=== PATIENT | male | born 1945 | race African-American/Black ===

== ENCOUNTER 2017-11-19 09:16 | Outpatient (CLI) | payer MEDICARE ==
[2017-11-19] MEDS ORDERED: Iopamidol 370 76% 100 ML VIAL ONE (16:04)
== END 2017-11-19 09:17 | disposition home or self-care (01) ==
LOC: BICCT 09:16
PROVIDERS: ATTEND Urology
DX: C64.2 Malignant neoplasm of left kidney, except renal pelvis (principal); K86.2 Cyst of pancreas; N28.1 Cyst of kidney, acquired
CPT/HCPCS: 71046; 74170

== ENCOUNTER 2018-10-24 04:33 | Outpatient (CLI) | payer MEDICARE ==
[2018-10-24 09:58] LABS: #Eosinphils 0.3 thou/uL (0.0-0.7); #Lymphocytes 1.4 thou/uL (1.20-3.40); #Monocytes 0.6 thou/uL (0.11-0.59); #Neutrophils 5.4 thou/uL (1.40-6.50); %Basophils 0.6 % (0.0-1.0); %Lymphocytes 18.6 % (21.0-51.0); %Monocytes 7.1 % (0.0-10.0); %Neutrophils 69.8 % (42.0-75.0); Hemoglobin 13.9 g/dL (14.0-18.0); Mean Corpuscular HGB CONC 31.8 g/dL (32.0-36.0); Mean Corpuscular Hemoglobin 31.9 pg (27.0-31.0); Mean Platelet Volume 6.6 fL (7.4-10.4); Platelet Count 327 thou/uL (130-400); RBC Distribution Width 11.6 % (11.5-14.5); Red Blood Cell (RBC) Count 4.36 mill/uL (4.70-6.10); White Blood Cell (WBC) Count 7.7 thou/uL (4.8-10.8)
[2018-10-24 10:05] LABS: PTT 27.3 SEC (22.9-36.1); Prothrombin Time 13.2 SEC (12.0-14.7)
[2018-10-24 10:20] LABS: Anion Gap 10 mmol/L (10-20); BUN (Urea Nitrogen) 14 mg/dL (8.4-25.7); Calc. Creatinine Clearance 0 mL/min (70-130); Calcium 9.3 mg/dL (7.8-10.44); Carbon Dioxide 25 mmol/L (23-31); Chloride 110 mmol/L (98-107); Estimated GFR-MDRD Greater than 90; Glucose 92 mg/dL (83-110); Potassium 3.4 mmol/L (3.5-5.1); Sodium 142 mmol/L (136-145)
[2018-10-24 10:26] LABS: Bilirubin Small (Negative); Blood, Urine Negative (Negative); Clarity CLEAR (Clear); Glucose, Urine (Dipstick) Negative (Negative); Leukocyte Small (Negative); Nitrite Negative (Negative); Protein, Urine (Dipstick) Negative (Neg-Trace); Specific Gravity, Urine 1.028 (1.002-1.036)
[2018-10-24 10:29] LABS: Bacteria/HPF None Seen HPF (None Seen); Hyaline Casts/LPF 0-3 HYALINE CAST LPF (0-3 Hyaline); Pathc Cast-AUWi Flag 0.14 (0-2.49); RBC/HPF 0-3 HPF (0-3); Squamous Epithelial 0-3 HPF (0-3)
--- NOTE | 2018-10-24 10:49 | RAD ---
CHEST 2 VIEWS: HISTORY: Preop. COMPARISON: Radiograph 01/20/2017. FINDINGS: Lungs are clear. No pneumothorax or effusion. Heart size is mildly enlarged. No acute osseous abno rmality. IMPRESSION: Mild cardiomegaly. No acute intrathoracic abnormality. POS: [facility]
--- NOTE | 2018-10-25 09:00 | EKG ---
Test Reason : Blood Pressure : / mmHG Vent. Rate : 074 BPM Atrial Rate : 074 BPM P-R Int : 156 ms QRS Dur : 078 ms QT Int : 366 ms P-R-T Axes : 057 051 000 degrees QTc Int : 406 ms Normal sinus rhythm Nonspecific T wave abnormality Abnormal ECG When compared with ECG of 15-FEB-2017 15:37, No significant change was found Confirmed by DR. Emmanuel ABDI ([id number]) on 10/25/2018 9:00:01 AM Referred By: ADAM Confirmed By:DR. Emmanuel ABDI
== END 2018-10-24 04:34 | disposition home or self-care (01) ==
LOC: LABBT 04:33
PROVIDERS: ATTEND Orthopaedic Surgery
DX: Z01.818 Encounter for other preprocedural examination (principal); M16.12 Unilateral primary osteoarthritis, left hip; I51.7 Cardiomegaly
CPT/HCPCS: 71046; 85730; 87081; 93005; 93010

== ENCOUNTER 2018-10-24 08:45 | Inpatient (IN) | payer MEDICARE ==
[2018-10-24 08:25] VITALS: BMI 30.7
[2018-11-05] MEDS ORDERED: Vancomycin HCl 1.5 GM in Sodium Chloride 0.9% 250 ML 300 ML IVPB SCH (06:00)
[2018-11-05] MEDS ORDERED: Fentanyl 100 MCG/2 ML VIAL ONE ×2 (06:22→07:06)
[2018-11-05] MEDS ORDERED: Midazolam HCl 2 mg/2 ml Vial ONE (06:22)
[2018-11-05] MEDS ORDERED: Sodium Chloride 0.9% 100 ML ONE (06:23)
[2018-11-05] MEDS ORDERED: Tranexamic Acid 1,000 MG/10 ML VIAL ONE (06:23)
[2018-11-05] MEDS ORDERED: Lidocaine 1.5% w/Epi 1:200K 30 ML VIAL (Epid Use) ONE (06:34)
[2018-11-05] MEDS ORDERED: Ondansetron PF 4 MG/2 ML Vial IVP PRN ×2 (07:15→08:52)
[2018-11-05] MEDS ORDERED: Naloxone HCl 0.4 mg/ml Vial IVP PRN (07:15)
[2018-11-05] MEDS ORDERED: Promethazine HCl 25 MG/ML VIAL IM PRN ×3 (07:15→08:52)
[2018-11-05] MEDS ORDERED: Naloxone HCl 0.4 mg/ml Vial IV PRN (07:15)
[2018-11-05] MEDS ORDERED: diphenhydrAMINE 50 MG/ML VIAL IM PRN (07:15)
[2018-11-05] MEDS ORDERED: traMADol HCl 50 MG TAB PO PRN ×2 (07:15)
[2018-11-05] MEDS ORDERED: HYDROcodone/Acetaminophen 5/325 mg Tablet PO PRN ×2 (07:15)
[2018-11-05] MEDS ORDERED: diphenhydrAMINE 25 MG CAP PO PRN ×2 (07:15→08:52)
[2018-11-05] MEDS ORDERED: diphenhydrAMINE 50 MG/ML VIAL IVP PRN (07:15)
[2018-11-05] MEDS ORDERED: Zolpidem Tartrate 5 MG TAB PO PRN ×2 (07:15→08:52)
[2018-11-05] MEDS ORDERED: Promethazine HCl 25 MG SUPP PR PRN (07:15)
[2018-11-05] MEDS ORDERED: Hydrocerin (Eucerin) Cream 120 gm Jar TOP PRN (07:15)
[2018-11-05] MEDS ORDERED: Promethazine HCl 25 MG/ML VIAL SLOW IVP PRN (08:40)
[2018-11-05] MEDS ORDERED: Ondansetron HCl/PF 4 MG/2 ML Vial IVP PRN (08:40)
[2018-11-05] MEDS ORDERED: Acetaminophen 325 MG TAB PO PRN (08:52)
[2018-11-05] MEDS ORDERED: Fentanyl 100 MCG/2 ML VIAL SLOW IVP PRN ×2 (08:52)
[2018-11-05] MEDS ORDERED: HYDROcodone/Acetaminophen 10/325 mg Tablet PO PRN ×2 (08:52)
[2018-11-05] MEDS ORDERED: Fentanyl 5 mcg/Bup 0.075% Cadd 100 ML EPIDURAL ONE (09:05)
--- NOTE | 2018-11-05 09:56 | RAD ---
LEFT HIP TWO VIEWS: HISTORY: Postoperative exam. FINDINGS: Left hip arthroplasty has near anatomic alignment. Expected postoperative changes in the soft tissue s. IMPRESSION: Findings compatible with left hip arthroplasty. POS: [facility]
[2018-11-05] MEDS: Allopurinol 300 MG TAB PO SCH (11:21)
[2018-11-05] MEDS: DorzolamidE/Timolol 2%/0.5% Ophth Soln 10 ml Bottle EA EYE SCH ×2 (11:22→20:15)
[2018-11-05] MEDS: Doxazosin Mesylate 4 MG TAB PO SCH (11:22)
[2018-11-05] MEDS: Multivitamin W/ Minerals 1 TAB PO SCH (11:22)
[2018-11-05] MEDS: Senokot S 8.6-50 MG TAB PO SCH ×2 (11:22→20:16)
[2018-11-05] MEDS: Aspirin 81 mg Enteric Coated Tablet PO SCH ×2 (11:22→20:16)
[2018-11-05] MEDS: Lisinopril/Hydrochlorothiazide 20 mg/12.5 mg Tablet PO SCH (11:22)
[2018-11-05] MEDS: Ferrous Gluconate 324 MG TAB PO SCH ×2 (11:22→20:16)
[2018-11-05] MEDS: Clindamycin/D5W 900 MG in Premix Bag 1 BAG IVPB SCH ×2 (11:59→17:21)
--- NOTE | 2018-11-05 12:37 | OP ---
DATE OF PROCEDURE: 11/05/2018 PREOPERATIVE DIAGNOSIS: Degenerative joint disease, left hip. POSTOPERATIVE DIAGNOSIS: Degenerative joint disease, left hip. UNDERGROUND DISTRIBUTION ENGINEER: Gold Conrad PA-C BLOOD LOSS: 300. SPECIMEN: None. DRAINS: None. COMPLICATION: None. IMPLANTS USED: Johnnie Accolate #5 stem, 58 mm cup, 36 mm X3 liner, and a standard 36 mm head. PROCEDURE IN DETAIL: After informed consent was obtained in the preoperative holding area, the patient was taken to the operative suite where general anesthesia was induced. The patient was then positioned in the lateral decubitus position. The hip was then prepped and draped in usual sterile fashion. The patient received preoperative antibiotics. Prior to incision, time-out was called and all members of the surgical team agreed upon site, surgeon, and patient. After this, a longitudinal incision was made directly over the trochanter, noted by palpation extending 2 fingerbreadths above and below the trochanter. The deeper subcutaneous layer was undermined with Bovie electrocautery. The iliotibial band was encountered and incised sharply and the plane below this was developed bluntly. A Charnley retractor was placed to hold this opened. The lateral aspect of the trochanter and the abductor muscles were encountered and then reflected anteriorly off the trochanter using Bovie electrocautery. Once this was completed, the anterior capsule was then encountered and identified and copious capsulotomy was carried out, exposing the femoral neck and head. Dislocation maneuver was then performed and an in situ provisional neck cut was then made using the oscillating saw. Attention was then turned to acetabular preparation and sequential reaming was carried out up to the appropriate diameter. A trial was then malleted into place with good firm resistance and no pullout. The permanent acetabular shell was then malleted squarely into place, as was the appropriate liner. Once completed, the wound was copiously irrigated and attention was then turned to femoral preparation. Flexion and external rotation were performed of the exposed thigh and femoral elevators were then placed at the proximal aspect of the wound. Canal finder was used to establish the length of the canal and sequential reaming was carried out, followed by broaching. Once the appropriate stability was established with the trial broaches with flexion, extension and rotational stability, we did trial with neutral and 2 mm offset incremental necks. Once the appropriate size was decided upon, with good stability noted with flexion, extension, internal and external rotation and shuck being negative, we removed the femoral trial broach and malletted into place the permanent prosthesis with good firm fit, which was also stable to rotation. Again, the hip felt very stable to flexion, extension, internal and external rotation. Leg lengths appeared near anatomic clinically and we were quite happy with prosthesis placement. Copious irrigation was then carried out through the entirety of the wound. Primary closure of the abductors was accomplished with interrupted #2 Vicryl [id number] stitches and the IT band was then closed with interrupted #2 Vicryl, oversewn with a #2 running barbed Quill stitch. Subcutaneous fascia was closed with running barbed Quill stitch and a subcuticular Monocryl barbed Quill stitch was used for skin closure and augmented with skin cement. A sterile dressing was applied. The procedure was terminated without any complication. All counts were correct. The patient was awakened in the operative suite and taken to the recovery room in stable condition. Job ID: [id number]
[2018-11-05] MEDS ORDERED: Rocuronium Bromide 10 MG/ML (10ML VIAL) ONE (15:04)
[2018-11-05] MEDS ORDERED: Glycopyrrolate 0.2 MG/ML 5 ML SYRINGE ONE (15:04)
[2018-11-05] MEDS ORDERED: Ondansetron PF 4 MG/2 ML Vial ONE (15:04)
[2018-11-05] MEDS ORDERED: ePHEDrine 50 MG/ML VIAL ONE (15:04)
[2018-11-05] MEDS ORDERED: PROPOFOL 200 MG/20 ML VIAL ONE (15:04)
[2018-11-05] MEDS ORDERED: Lidocaine 1% PF 5 ML VIAL ONE (15:04)
--- NOTE | 2018-11-05 16:55 | PDOC.EVN ---
Addendum - Attending - Attending Attestation Date/Time: 11/05/18 1214 I personally evaluated the patient and discussed the management with Dr. Laurent Matias. I agree with the History, Examination, Assessment and Plan documented in her consult note with any addition or exceptions noted below. Patient here for L THR that was performed today and we are consulted for medical mgmt. Will resume home meds and make adjustments as needed. Dispo per primary team.
[2018-11-05] MEDS ORDERED: Potassium Chloride 8 MEQ TAB PO SCH (17:00)
[2018-11-05] MEDS: Potassium Chloride 20 MEQ TAB PO SCH (17:20)
--- NOTE | 2018-11-05 17:49 | CON ---
DATE OF CONSULTATION: 11/05/2018 REASON FOR CONSULTATION: Medical management. HISTORY OF PRESENT ILLNESS: This is a pleasant 73-year-old gentleman with a past medical history of hypertension and hyperlipidemia, who presented this morning for left total hip replacement and when I saw him this afternoon, he was working with physical therapy. Denied severe pain. He had tolerated his lunch fine without nausea and vomiting. He denied any symptoms. He had a Bernard in place with urine output. [facility] consulted for medical management. PAST MEDICAL HISTORY: 1. Hypertension. 2. Hyperlipidemia. 3. Degenerative joint disease of left hip. 4. History of gout. 5. Benign prostatic hypertrophy. PAST SURGICAL HISTORY: 1. Hernia repair 20 years ago. 2. Right ankle fracture, status post repair. 3. Back surgery [place] [address] Sanchez. 4. Left kidney mass/removal. 5. Left total hip repaired today. FAMILY HISTORY: Mother and father are . Denies other family history. SOCIAL HISTORY: Denies smoking, alcohol, or drug use. ALLERGIES: NO KNOWN DRUG ALLERGIES. PHYSICAL EXAMINATION: VITAL SIGNS: Blood pressure 152/80, temperature 97.4, heart rate 80, respiratory rate 18, saturating 96% on room air. GENERAL: In no apparent distress. HEENT: Normocephalic, atraumatic. Pupils are equal, round, and reactive to light and accommodation. CARDIOVASCULAR: Regular rate and rhythm. No murmurs, rubs, or gallops. RESPIRATORY: Clear to auscultation bilaterally. No wheezing, rhonchi, or rales. ABDOMEN: Obese, but soft. Nontender to palpation, nondistended. Hypoactive bowel sounds. EXTREMITIES: No edema bilaterally. 1+ pulses in bilateral lower extremities. NEUROLOGIC: Alert and oriented x3. DIAGNOSTIC DATA: Hip x-ray on 11/05/2018 at 08:54, left hip arthroplasty with near anatomic alignment, expected postop changes in the soft tissues, findings compatible with left hip arthroplasty. LABORATORY DATA: On 10/24/2018, white blood cell count 10.7, hemoglobin 13.9, hematocrit 42.9, platelets 327, MCV 101. Coag panel; PT 13.2, INR 1, and PTT 27.3. BMP; sodium 142, potassium 3.4, chloride 110, bicarb 25, BUN 14, creatinine 0.88 , glucose 92. Urine, small leukocyte esterase, 7 to 10 white blood cells, 0 to 3 squamous cells, negative nitrites, negative bacteria. ASSESSMENT AND PLAN: This is a 73-year-old gentleman with past medical history of hypertension and hyperlipidemia, now status post left total hip arthroplasty. Family Medicine Service was consulted for medical management. 1. Left hip arthroplasty, postoperative day 0. We will defer to primary team for postoperative management. 2. Hypertension. Blood pressure mildly hypertensive 153 systolic. The patient restarted on home medication. Amlodipine 2.5 mg p.o. daily and lisinopril 20 and hydrochlorothiazide 12.5. We will continue the lisinopril 20 and hydrochlorothiazide 12.5 daily and hold the benazepril currently as this was also restarted. At this time, we will watch blood pressures overnight and adjust accordingly. Hydralazine prn provided as pt was given home meds this am. 3. Hyperlipidemia. He is currently on atorvastatin 10 mg p.o. at night. Ordered FLP to assess ascvd risk. Will consider increasing if necessary. 4. History of gout. The patient was continued on his home medication of allopurinol 300 mg p.o. daily. 5. Benign prostatic hypertrophy. The patient was continued on doxazosin 4 mg p.o. daily. 6. Deep venous thrombosis prophylaxis with SCDs. 7. Diet, heart healthy. 8. Activity, as tolerated with physical therapy. 9. Code status, full code. This pt was seen by Dr. Giacomo Peterson, my attending, who agrees with the above assessment and plan. Jonathan Matias MD, PGY-2 Job ID: [id number] [facility]
[2018-11-05] MEDS ORDERED: hydrALAZINE 20 MG/ML VIAL SLOW IVP PRN (17:54)
[2018-11-05] MEDS: Latanoprost 0.005% Ophth Soln 2.5 ml Bottle EA EYE SCH (20:15)
[2018-11-05] MEDS: Atorvastatin Calcium 10 MG TAB PO SCH (20:16)
[2018-11-06] MEDS: Fentanyl 5 mcg/Bup 0.075% Cadd 100 ML EPIDURAL SCH ×2 (01:58→17:18)
[2018-11-06 04:34] LABS: Hemoglobin 12.3 g/dL (14.0-18.0); Mean Corpuscular HGB CONC 31.6 g/dL (32.0-36.0); Mean Platelet Volume 6.8 fL (7.4-10.4); Platelet Count 276 thou/uL (130-400); RBC Distribution Width 11.5 % (11.5-14.5); Red Blood Cell (RBC) Count 3.83 mill/uL (4.70-6.10); White Blood Cell (WBC) Count 10.6 thou/uL (4.8-10.8)
[2018-11-06 04:58] LABS: ALT (SGPT) 14 U/L (8-55); AST (SGOT) 29 U/L (5-34); Albumin 3.2 g/dL (3.4-4.8); Alkaline Phosphatase 74 U/L (40-150); Anion Gap 10 mmol/L (10-20); BUN (Urea Nitrogen) 11 mg/dL (8.4-25.7); Bilirubin, Total 0.9 mg/dL (0.2-1.2); Calc. Creatinine Clearance 101 mL/min (70-130); Calcium 8.5 mg/dL (7.8-10.44); Carbon Dioxide 25 mmol/L (23-31); Cardiac Risk 2.5 (Less than 4.5); Chloride 107 mmol/L (98-107); Cholesterol 80 mg/dl (< 200 Desired); Estimated GFR-MDRD Greater than 90; Globulin 2.2 g/dL (2.4-3.5); Glucose 112 mg/dL (83-110); HDL Cholesterol 32 mg/dL (>60 Neg Risk); LDL Cholesterol, Calculated 39 mg/dL; Potassium 3.4 mmol/L (3.5-5.1); Protein, Total 5.4 g/dL (5.8-8.1); Sodium 139 mmol/L (136-145); Triglycerides 47 mg/dL (Less than 150)
[2018-11-06] MEDS ORDERED: Potassium Chloride 20 MEQ TAB PO SCH (06:45)
[2018-11-06] MEDS ORDERED: Lactated Ringer's 500 ML IV SCH (07:00)
[2018-11-06] MEDS: Doxazosin Mesylate 4 MG TAB PO SCH (08:47)
[2018-11-06] MEDS: Potassium Chloride 20 MEQ TAB PO SCH ×2 (08:49→17:18)
[2018-11-06] MEDS: Multivitamin W/ Minerals 1 TAB PO SCH (08:51)
[2018-11-06] MEDS: Lisinopril/Hydrochlorothiazide 20 mg/12.5 mg Tablet PO SCH (08:52)
[2018-11-06] MEDS: Senokot S 8.6-50 MG TAB PO SCH ×2 (08:52→22:42)
[2018-11-06] MEDS: Ferrous Gluconate 324 MG TAB PO SCH ×2 (08:54→20:48)
[2018-11-06] MEDS: Allopurinol 300 MG TAB PO SCH (08:55)
[2018-11-06] MEDS: DorzolamidE/Timolol 2%/0.5% Ophth Soln 10 ml Bottle EA EYE SCH ×2 (08:57→20:47)
[2018-11-06] MEDS ORDERED: Amlodipine 5 MG TAB PO SCH (09:00)
--- NOTE | 2018-11-06 09:06 | PDOC.FM ---
- Subjective Subjective: Doing well. Although, tachycardic overnight. One episode of hypoxia overnight. Resting in chair without oxygen on. - Objective MAR Reviewed: Yes Vital Signs & Weight: Vital Signs (12 hours) Temp Pulse Resp BP BP Pulse Ox 11/06/18 08:55 142/78 H 11/06/18 08:53 142/78 H 11/06/18 08:52 142/78 H 11/06/18 07:57 98.4 F 117 H 20 142/78 H 92 L 11/06/18 04:14 98.5 F 101 H 20 133/75 96 11/06/18 00:31 99.0 F 107 H 20 142/79 H 93 L 11/05/18 21:56 98.9 F 112 H 22 H 137/81 94 L Weight Weight 97.069 kg I&O: 11/05/18 11/06/18 11/07/18 06:59 06:59 06:59 Intake Total 1750 Output Total 1425 Balance 325 Result Diagrams: 11/06/18 04:15 11/06/18 04:15 Phys Exam - Physical Examination Constitutional: NAD dry mm Respiratory: no wheezing, no rales, clear to auscultation bilateral tachycardic Gastrointestinal: soft, no distention obese; hypoactive bowel sounds Musculoskeletal: no edema Psychiatric: normal affect, A&O x 3 Deviation from normal: delayed capillary refill Dx/Plan (1) S/P total hip arthroplasty Code(s): Z96.649 - PRESENCE OF UNSPECIFIED ARTIFICIAL HIP JOINT Status: Acute (2) Hypoxia Code(s): R09.02 - HYPOXEMIA Status: Acute (3) Hypokalemia Code(s): E87.6 - HYPOKALEMIA Status: Acute (4) HTN (hypertension) Code(s): I10 - ESSENTIAL (PRIMARY) HYPERTENSION Status: Acute (5) HLD (hyperlipidemia) Code(s): E78.5 - HYPERLIPIDEMIA, UNSPECIFIED Status: Acute (6) BPH (benign prostatic hyperplasia) Code(s): N40.0 - BENIGN PROSTATIC HYPERPLASIA WITHOUT LOWER URINRY TRACT SYMP Status: Acute (7) Hx of gout Code(s): Z87.39 - PERSONAL HISTORY OF DISEASES OF THE MS SYS AND CONN TISS Status: Acute (8) History of renal carcinoma Code(s): Z85.528 - PERSONAL HISTORY OF OTHER MALIGNANT NEOPLASM OF KIDNEY Status: Acute - Plan Plan: 73 yo gentleman, POD #1 from left total hip arthroplasty. We were consulted for medical management. #Left hip arthroplasty, POD #1 -hypoxic last night, resolved this am -tachycardic overnight, dry on exam, delayed cap refill -there is some concern for hx of CHF although I can't find that in his chart in the past -bolus 250ml for tachy/dry appearing and will reassess -ordered bilateral doppler US to rule out DVT -ordered EKG -Recommend incentive spirometry #tachycardia with hypoxia -hypoxia last night, one episode but saturating well on RA this am -dry appearing on exam -s/p 250ml bolus -EKG ordered -Bilateral doppler US ordered; consider CTA if continued hypoxia -would consider lovenox daily for DVT prophylaxis #Hypokalemia- -Replaced with 20KCL #HTN- -Lisinopril and HCTZ daily #HLD- -Atorvastatin Daily #Hx of gout- -Allopurinol daily Addendum - Attending - Attending Attestation Date/Time: 11/06/18 1042 I personally evaluated the patient and discussed the management with Dr. Headley I agree with the History, Examination, Assessment and Plan documented above with any addition or exceptions noted below. 73 yo male with history of OA, HTN, HLD, gout admitted for left hip arthroplasty. HD#2 POD#1 Patient doing well this morning. Sitting up in chair. No complaints. Noted to have tachycardia overnight and this morning. Denies SOB, dizziness, CP, palpitations. VS reviewed. Labs reviewed. NAD. Sitting in chair. Elevated HR. RR. No murmurs. CTAB. No wheezing. 1. s/p left hip arthro: primary team managing. Recommend VTE ppx. 2. Sinus tachycardia: Monitor. Asymptomatic. Will increase fluid intake. EKG pending to verify. 3. HTN: home meds and adjust as needed. 4. electrolytes: Monitor and replace as needed. 5. HLD: continue statin. 6. gout: continue home meds. Continue close monitoring. Follow up throughout the day on elevated HR. Tele as needed. [facility]
[2018-11-06] MEDS: Aspirin 81 mg Enteric Coated Tablet PO SCH ×2 (09:30→20:48)
[2018-11-06 10:55] LABS: Folate (Folic Acid) 4.1 ng/mL (7.0-31.4)
[2018-11-06 12:50] LABS: Magnesium 1.7 mg/dL (1.6-2.6); Phosphorus 2.4 mg/dL (2.3-4.7)
--- NOTE | 2018-11-06 13:38 | ULT ---
BILATERAL LOWER EXTREMITY VENOUS DOPPLER ULTRASOUND: Date: 11-06-18 Comparison: None. History: Tachycardia, hypoxemia. Evaluate for DVT. Technique: Multiplanar grayscale sonographic imaging of the venous structures bilateral lower extremi ties obtained with color flow and spectral analysis. FINDINGS: Bilateral common femoral veins, greater saphenous veins, profunda femoral veins, femoral veins, popli teal veins and posterior tibial veins are patent. There is normal blood flow, augmentation and compre ssion within the deep venous system bilaterally with no evidence for deep venous thrombosis. IMPRESSION: No evidence for deep venous thrombosis of either lower extremity. POS: [facility]
[2018-11-06] MEDS: Latanoprost 0.005% Ophth Soln 2.5 ml Bottle EA EYE SCH (20:47)
[2018-11-06] MEDS: Atorvastatin Calcium 10 MG TAB PO SCH (20:48)
[2018-11-07] MEDS: Fentanyl 5 mcg/Bup 0.075% Cadd 100 ML EPIDURAL SCH ×2 (05:24→17:47)
[2018-11-07 06:02] LABS: Hemoglobin 10.7 g/dL (14.0-18.0); Mean Corpuscular HGB CONC 31.6 g/dL (32.0-36.0); Mean Corpuscular Hemoglobin 32.5 pg (27.0-31.0); Mean Platelet Volume 6.7 fL (7.4-10.4); Platelet Count 236 thou/uL (130-400); RBC Distribution Width 11.4 % (11.5-14.5); White Blood Cell (WBC) Count 13.1 thou/uL (4.8-10.8)
--- NOTE | 2018-11-07 07:01 | PDOC.FM ---
- Subjective Subjective: Doing well this morning. Endorses some shortness of breath yesterday but feels fine in the bed. He states that he was seen by Dr. Lynn in the fall because some doctors were concerned for heart failure but the tests have been fine. He doesn't know if he has heart failure or not. I called [facility] and an echo was done in 07/2018 that showed an EF of 60-65% and 1/3 diastolic [address] He saw Dr[address] Lynn there. - Objective MAR Reviewed: Yes Vital Signs & Weight: Vital Signs (12 hours) Temp Pulse Resp BP Pulse Ox 11/07/18 06:49 93 L 11/07/18 04:19 98.7 F 99 20 143/69 H 93 L 11/07/18 00:19 99.4 F 105 H 20 142/63 H 95 11/06/18 20:45 91 L 11/06/18 20:00 98.9 F 117 H 20 154/72 H 91 L Weight Admit Weight 97.069 kg Weight 97.069 kg I&O: 11/06/18 11/07/18 11/08/18 06:59 06:59 06:59 Intake Total 1750 1250 Output Total 1425 675 Balance 325 575 Result Diagrams: 11/07/18 05:13 11/07/18 07:41 Phys Exam - Physical Examination Constitutional: NAD HEENT: PERRLA, moist MMs crackles bilaterally, improved with respirations tachycardic Gastrointestinal: soft obese Musculoskeletal: no edema, pulses present Neurological: non-focal, normal sensation Psychiatric: normal affect, A&O x 3 Skin: no rash, normal turgor Dx/Plan (1) S/P total hip arthroplasty Code(s): Z96.649 - PRESENCE OF UNSPECIFIED ARTIFICIAL HIP JOINT Status: Acute (2) Hypoxia Code(s): R09.02 - HYPOXEMIA Status: Resolved (3) Hypokalemia Code(s): E87.6 - HYPOKALEMIA Status: Resolved (4) HTN (hypertension) Code(s): I10 - ESSENTIAL (PRIMARY) HYPERTENSION Status: Acute (5) HLD (hyperlipidemia) Code(s): E78.5 - HYPERLIPIDEMIA, UNSPECIFIED Status: Acute (6) BPH (benign prostatic hyperplasia) Code(s): N40.0 - BENIGN PROSTATIC HYPERPLASIA WITHOUT LOWER URINRY TRACT SYMP Status: Acute (7) Hx of gout Code(s): Z87.39 - PERSONAL HISTORY OF DISEASES OF THE MS SYS AND CONN TISS Status: Acute (8) History of renal carcinoma Code(s): Z85.528 - PERSONAL HISTORY OF OTHER MALIGNANT NEOPLASM OF KIDNEY Status: Acute - Plan Plan: 73 yo gentleman, POD #1 from left total hip arthroplasty. We were consulted for medical management. #Left hip arthroplasty, POD #2 -hypoxic last night, resolved this am -tachycardic overnight, dry on exam, delayed cap refill -there is some concern for hx of CHF although I can't find that in his chart in the past -bolus 250ml for tachy/dry appearing and will reassess -ordered bilateral doppler US to rule out DVT -ordered EKG -Recommend incentive spirometry #tachycardia with hypoxia -hypoxia resolved, saturating well on 2L this am -had an echo in 07/2018 that showed EF 60-65% with 1/3 diastolic dysfunction -He may have diastolic CHF, will control his blood pressure and other medical conditions, however, he may benefit from an out patient sleep study as he may have TAINA causing nighttime hypoxia and tachycardia -Bilateral doppler US ordered and negative -cannot give lovenox as patient as a fentanyl epidural for pain and the combination can cause hematomas and possible paralysis #Hypokalemia- -resolved #HTN- -Lisinopril and HCTZ daily -will add amlodipine 5mg daily #HLD- -Atorvastatin 10mg Daily #Hx of gout- -Allopurinol daily
--- NOTE | 2018-11-07 07:44 | EKG ---
Test Reason : Blood Pressure : / mmHG Vent. Rate : 104 BPM Atrial Rate : 104 BPM P-R Int : 158 ms QRS Dur : 076 ms QT Int : 306 ms P-R-T Axes : 046 034 036 degrees QTc Int : 402 ms Sinus tachycardia Nonspecific T wave abnormality Abnormal ECG When compared with ECG of 24-OCT-2018 09:10, No significant change was found Confirmed by ESTEBAN LÓPEZ ([id number]) on 11/07/2018 7:44:03 AM Referred By: HODAN TURNER *R Confirmed By:ESTEBAN LÓPEZ
--- NOTE | 2018-11-07 08:15 | RAD ---
CHEST 1 VIEW: Date: 11/07/18 HISTORY: Dyspnea. Hypoxia. Follow-up. COMPARISON: 10/24/18. FINDINGS: Cardiac silhouette is magnified by projection. Pulmonary vasculature upper limits of normal. Linear a telectasis at the left base. Mediastinum is midline. No lobar consolidation or evidence of pneumothor ax. IMPRESSION: Chronic-type findings. No active cardiopulmonary abnormalities are demonstrated. POS: [facility]
[2018-11-07] MEDS: Aspirin 81 mg Enteric Coated Tablet PO SCH ×2 (08:17→20:43)
[2018-11-07] MEDS: Multivitamin W/ Minerals 1 TAB PO SCH (08:17)
[2018-11-07] MEDS: Lisinopril/Hydrochlorothiazide 20 mg/12.5 mg Tablet PO SCH (08:17)
[2018-11-07] MEDS: Amlodipine 5 MG TAB PO SCH (08:18)
[2018-11-07] MEDS: Senokot S 8.6-50 MG TAB PO SCH ×2 (08:18→20:43)
[2018-11-07] MEDS: Allopurinol 300 MG TAB PO SCH (08:18)
[2018-11-07] MEDS: Potassium Chloride 20 MEQ TAB PO SCH ×2 (08:18→16:49)
[2018-11-07] MEDS: Folic Acid 1 MG TAB PO SCH (08:18)
[2018-11-07] MEDS: Ferrous Gluconate 324 MG TAB PO SCH ×2 (08:19→20:43)
[2018-11-07 08:29] LABS: Anion Gap 13 mmol/L (10-20); BUN (Urea Nitrogen) 15 mg/dL (8.4-25.7); Calc. Creatinine Clearance 90 mL/min (70-130); Calcium 8.7 mg/dL (7.8-10.44); Carbon Dioxide 25 mmol/L (23-31); Chloride 105 mmol/L (98-107); Estimated GFR-MDRD 89; Glucose 123 mg/dL (83-110); Potassium 3.7 mmol/L (3.5-5.1); Sodium 139 mmol/L (136-145)
[2018-11-07] MEDS: DorzolamidE/Timolol 2%/0.5% Ophth Soln 10 ml Bottle EA EYE SCH ×2 (08:50→20:43)
[2018-11-07] MEDS: Doxazosin Mesylate 4 MG TAB PO SCH (08:51)
[2018-11-07] MEDS ORDERED: Enoxaparin Sodium 40 MG/0.4 ML SYRINGE SC SCH ×2 (09:00→12:00)
--- NOTE | 2018-11-07 11:19 | PRG ---
DATE OF SERVICE: 11/07/2018 ADDENDUM: This is an addendum to the note of Dr. Sandy Matias. Mr. Villeda is a pleasant 73-year-old black man, who is status post left total hip replacement. We are following his medical issues including hypertension. He is currently on amlodipine, lisinopril and hydrochlorothiazide. His blood pressure this morning was 132/71. Pulse rate is 108. He is afebrile. His room air O2 saturation is 91%. He offers no complaints and his pain seems well controlled. His labs this morning show a slow settling of his hemoglobin, which is not unusual after hip surgery. White count is 13,100. Hemoglobin is 10.7. Chemistries; his sodium is 139, potassium 3.7, chloride 105, bicarb 25, BUN 15, and creatinine 1. We will continue to follow with the orthopedic surgical team in anticipation of discharge probably in the next day or two. Job ID: [id number]
[2018-11-07] MEDS: Latanoprost 0.005% Ophth Soln 2.5 ml Bottle EA EYE SCH (20:43)
[2018-11-07] MEDS: Atorvastatin Calcium 10 MG TAB PO SCH (20:43)
[2018-11-08] MEDS: Fentanyl 5 mcg/Bup 0.075% Cadd 100 ML EPIDURAL SCH (05:49)
[2018-11-08 06:05] LABS: #Eosinphils 0.3 thou/uL (0.0-0.7); #Lymphocytes 1.1 thou/uL (1.20-3.40); #Monocytes 0.9 thou/uL (0.11-0.59); #Neutrophils 9.5 thou/uL (1.40-6.50); %Basophils 0.3 % (0.0-1.0); %Eosinophils 2.7 % (0.0-10.0); %Lymphocytes 9.3 % (21.0-51.0); %Monocytes 7.6 % (0.0-10.0); %Neutrophils 80.2 % (42.0-75.0); Hemoglobin 10.6 g/dL (14.0-18.0); Mean Corpuscular HGB CONC 31.5 g/dL (32.0-36.0); Mean Corpuscular Hemoglobin 32.2 pg (27.0-31.0); Mean Platelet Volume 6.8 fL (7.4-10.4); Platelet Count 262 thou/uL (130-400); RBC Distribution Width 11.3 % (11.5-14.5); Red Blood Cell (RBC) Count 3.29 mill/uL (4.70-6.10); White Blood Cell (WBC) Count 11.8 thou/uL (4.8-10.8)
--- NOTE | 2018-11-08 07:56 | PDOC.FM ---
- Subjective Subjective: Denies shortness of breath or dysuria this morning. Resting comfortably. Pain controlled. - Objective Vital Signs & Weight: Vital Signs (12 hours) Temp Pulse Resp BP Pulse Ox 11/08/18 04:21 98.7 F 110 H 20 134/75 95 11/08/18 00:44 98.1 F 11/08/18 00:27 100.6 F H 106 H 20 113/67 95 11/07/18 20:50 98.6 F 105 H 20 130/73 93 L Weight Admit Weight 97.069 kg Weight 97.069 kg I&O: 11/07/18 11/08/18 11/09/18 06:59 06:59 06:59 Intake Total 1250 1650 Output Total 675 950 Balance 575 700 Result Diagrams: 11/08/18 05:56 11/07/18 07:41 Phys Exam - Physical Examination Constitutional: NAD HEENT: PERRLA, moist MMs Respiratory: no wheezing, no rales, clear to auscultation bilateral Cardiovascular: no significant murmur tachy Gastrointestinal: soft, non-tender Musculoskeletal: no edema, pulses present Neurological: non-focal, normal sensation Psychiatric: normal affect, A&O x 3 Skin: no rash, normal turgor Dx/Plan (1) S/P total hip arthroplasty Code(s): Z96.649 - PRESENCE OF UNSPECIFIED ARTIFICIAL HIP JOINT Status: Acute (2) Hypokalemia Code(s): E87.6 - HYPOKALEMIA Status: Resolved (3) HTN (hypertension) Code(s): I10 - ESSENTIAL (PRIMARY) HYPERTENSION Status: Acute (4) HLD (hyperlipidemia) Code(s): E78.5 - HYPERLIPIDEMIA, UNSPECIFIED Status: Acute (5) BPH (benign prostatic hyperplasia) Code(s): N40.0 - BENIGN PROSTATIC HYPERPLASIA WITHOUT LOWER URINRY TRACT SYMP Status: Acute (6) Hx of gout Code(s): Z87.39 - PERSONAL HISTORY OF DISEASES OF THE MS SYS AND CONN TISS Status: Acute (7) History of renal carcinoma Code(s): Z85.528 - PERSONAL HISTORY OF OTHER MALIGNANT NEOPLASM OF KIDNEY Status: Acute - Plan Plan: 73 yo gentleman, POD #1 from left total hip arthroplasty. We were consulted for medical management. #Left hip arthroplasty, POD #3 -post op management deferred to primary surgeon -tachycardic overnight, febrile overnight -ordered UA, urine cx, blood cx -CXR yesterday did not show any signs of pneumonia -pt still has epidural and beck in place; urine was brownish colored yesterday , UA showed blood and leuks but neg for nitrites or bacteria -bilateral doppler US was negative for dvt (ordered d/t pers tachycardia) -EKG showed sinus tach -pt never complains of shortness of breath, but would still consider CTA chest if resp status worsens -Recommend incentive spirometry #SIRS -tachycardia, febrile -ordered labs to evaluate for source of infection (see above). -UA with blood and leuks, beck in place since he still has epidural for pain; however plan is to remove beck and epidural today; epidural likely cause of fever #1/3d diastolic dysfunction- -had an echo 07/2018 that showed EF 60-65% with 1/3 diastolic dysfunction -He may have diastolic CHF, will control his blood pressure and other medical conditions, however, he may benefit from an out patient sleep study as he may have TAINA causing nighttime hypoxia and tachycardia -Bilateral doppler US ordered and negative -could not give lovenox as patient as a fentanyl epidural for pain and the combination can cause hematomas and possible paralysis #Hypokalemia- -resolved #HTN- -Lisinopril and HCTZ daily -amlodipine 5mg daily #HLD- -Atorvastatin 10mg Daily #Hx of gout- -Allopurinol daily
[2018-11-08 08:46] LABS: Bilirubin Negative (Negative); Blood, Urine Large (Negative); Clarity CLOUDY (Clear); Glucose, Urine (Dipstick) Negative (Negative); Leukocyte Moderate (Negative); Nitrite Negative (Negative); Protein, Urine (Dipstick) 100 mg/dL (Neg-Trace); Specific Gravity, Urine 1.022 (1.002-1.036); pH, Urine 5.5 (5.0-9.0)
[2018-11-08 08:48] LABS: Bacteria/HPF None Seen HPF (None Seen); Hyaline Casts/LPF 7-10 HYALINE CAST LPF (0-3 Hyaline); Pathc Cast-AUWi Flag 0.58 (0-2.49); RBC/HPF GREATER THAN 50-TNTC HPF (0-3); Squamous Epithelial 0-3 HPF (0-3); WBC/HPF 21-50 HPF (0-3)
[2018-11-08] MEDS: DorzolamidE/Timolol 2%/0.5% Ophth Soln 10 ml Bottle EA EYE SCH (09:08)
[2018-11-08] MEDS: Folic Acid 1 MG TAB PO SCH (09:08)
[2018-11-08] MEDS: Ferrous Gluconate 324 MG TAB PO SCH (09:09)
[2018-11-08] MEDS: Doxazosin Mesylate 4 MG TAB PO SCH (09:09)
[2018-11-08] MEDS: Potassium Chloride 20 MEQ TAB PO SCH (09:09)
[2018-11-08] MEDS: Multivitamin W/ Minerals 1 TAB PO SCH (09:09)
[2018-11-08] MEDS: Aspirin 81 mg Enteric Coated Tablet PO SCH (09:09)
[2018-11-08] MEDS: Allopurinol 300 MG TAB PO SCH (09:09)
[2018-11-08] MEDS: Amlodipine 5 MG TAB PO SCH (09:10)
[2018-11-08] MEDS: Senokot S 8.6-50 MG TAB PO SCH (09:10)
[2018-11-08] MEDS: Lisinopril/Hydrochlorothiazide 20 mg/12.5 mg Tablet PO SCH (09:10)
--- NOTE | 2018-11-08 11:08 | PRG ---
DATE OF SERVICE: 11/08/2018 SUBJECTIVE: Mr. Villeda'khadra blood pressure is doing well. We are continuing to work him up for B12 and folate deficiency as both of his levels were low normal. Dr. Matias has placed an order for methylmalonic acid and homocystine. He will likely need B12 and folate deficiency as an outpatient. In the event, he is ready for discharge from our perspective, and we will await the input from Orthopedics. Job ID: [id number]
[2018-11-08 11:49] VITALS: BP 146/76; TEMP 98.1
[2018-11-08] MEDS ORDERED: Enoxaparin Sodium 40 MG/0.4 ML SYRINGE SC SCH (21:00)
== END 2018-11-08 15:15 | DRG 470 ==
LOC: SJJU 11-05 05:27 → SURG B 11-05 10:09
PROVIDERS: ADMIT Orthopaedic Surgery; ATTEND Orthopaedic Surgery
PROC: 0SRB0J9 Replacement of Left Hip Joint with Synthetic Substitute, Cemented, Open Approach (ICD-10-PCS; principal; 2018-11-05)
DX: M16.12 Unilateral primary osteoarthritis, left hip (principal); I10 Essential (primary) hypertension; E78.5 Hyperlipidemia, unspecified; N40.0 Benign prostatic hyperplasia without lower urinary tract symptoms; E53.8 Deficiency of other specified B group vitamins; R09.02 Hypoxemia; E87.6 Hypokalemia; Z98.890 Other specified postprocedural states; Z87.39 Personal history of other diseases of the musculoskeletal system and connective tissue; Z85.528 Personal history of other malignant neoplasm of kidney
CPT/HCPCS: 36415; 71045; 80048; 80053; 80061; 81001; 82607; 82746; 83090; 83735; 83880; 83921; 84100; 85025; 85027; 86850; 86900; 86901; 87040; 87086; 93005; 93010; 93970; C1776; J1650; J2001; J2250; J2405; J2704; J3010; J3370; J3490; J7050